=== PATIENT | female | born 1995 ===

== ENCOUNTER → 2020-12-29 | Outpatient (CLI) | payer OTHER ==
--- NOTE | 2020-12-29 16:46 | RAD ---
EXAM: OB ULTRASOUND, > 14 WEEKS HISTORY: Uterine size and dates discrepancy. COMPARISON: None. TECHNIQUE: Multiple grayscale images, color Doppler, and M-mode images of the uterus are obtained. FINDINGS: There is a single intrauterine gestation in breech presentation. The placenta is anterior in location without evidence of placenta previa. The amount of amniotic fluid appears appropriate. Amniotic flu id index is 15.7 cm. Cervical length is 3.5 cm. Biometrical data: BPD = 5.24 cm for 21 weeks 6 days. HC = 21.35 cm for 23 weeks 3 days. AC = 18.30 cm for 23 weeks 1 days. FL = 3.90 cm for 22 weeks 4 days. HC/AC ratio = 1.17. Overall, the estimated sonographic gestational age is 22 weeks and 5 days for an estimated date of de livery of 04/29/2021. The estimated date of delivery provided by the last menstrual period is 22 weeks and 0 days. Estimated weight is 542 grams. This corresponds with the 52nd percentile for a ge stational age of 22 weeks and 0 days based on LMP. The heart rate is 157 bpm. There is a four-c hamber heart. There is a three-vessel umbilical cord. The stomach, kidneys, bladder, spin e, brain, facial profile and extremities are unremarkable. There is breathing] motion motion du ring the exam. The maternal adnexal regions are unremarkable. IMPRESSION: Single intrauterine fetus in breech presentation with a normal heart rate and gestational age based o n ultrasound measurements of 22 weeks and 5 days. The estimated weight is at the 52nd percentil e for a gestational age of 22 weeks and 0 days based on LMP. Electronically signed by: Summer Krause MD (12/29/2020 4:43 PM) [id number]
== END ==
LOC: RAD 15:14
PROVIDERS: ATTEND Obstetrics & Gynecology
DX: O32.1XX0 Maternal care for breech presentation, not applicable or unspecified (principal); O26.842 Uterine size-date discrepancy, second trimester; Z3A.22 22 weeks gestation of pregnancy
CPT/HCPCS: 76805